=== PATIENT | female | born 1945 | race Caucasian/White ===

== ENCOUNTER 2016-05-21 08:17 | Inpatient (IN) | payer OTHER ==
[2016-05-09 09:44] LABS: BASOPHILS 0.3 %; BASOPHILS ABSOLUTE 0.02 10/3/uL (0.0-0.16); EOSINOPHILS 0.7 %; EOSINOPHILS ABSOLUTE 0.05 10/3/uL (0.0-0.53); HEMATOCRIT 43.3 % (36.0-48.0); HEMOGLOBIN 13.8 g/dL (12.0-16.0); IMMATURE GRANULOCYTES 0.1 %; IMMATURE GRANULOCYTES ABSOLUTE 0.01 10/3/uL (0.0-0.11); LYMPHOCYTES 30.3 %; MANUAL DIFF NO %; MEAN CORPUS HGB CONC 31.9 g/dL (32.0-36.0); MEAN CORPUSCULAR HEMOGLOB 29.4 pg (26.0-34.0); MEAN CORPUSCULAR VOLUME 92.3 fL (80-100); MONOCYTES 7.5 %; MONOCYTES ABSOLUTE 0.52 10/3/uL (0.21-1.20); NEUTROPHILS 61.1 %; NEUTROPHILS ABSOLUTE 4.24 10/3/uL (2.02-8.40); PLATELET COUNT 309 10/3/uL (150-400); RBC DISTRIBUTION WIDTH 13.1 % (12.0-16.0); RED CELL COUNT 4.69 10/6/uL (4.0-5.6); WHITE BLOOD CELLS 6.9 10/3/uL (4.5-10.5)
[2016-05-09 09:55] LABS: PARTIAL THROMBO TIME 27.4 SEC (22.5-37.2)
[2016-05-09 09:56] LABS: PROTIME (NOT ORD) 12.7 SEC (12.0-14.5)
[2016-05-09 10:02] LABS: A/G RATIO 1.1 (0.7-1.9); ALBUMIN 3.8 G/DL (3.5-5.0); ALKALINE PHOSPHATASE 129 U/L (45-117); BUN (BLOOD UREA NITROGEN) 15 MG/DL (6-23); CALCIUM, SERUM 9.2 MG/DL (8.5-10.4); CHLORIDE, SERUM 108 MMOL/L (96-112); CO2 (CARBON DIOXIDE) 28 MMOL/L (24-34); GFR AFRICAN AMERICAN 75 ML/MIN (>=60); GFR NON AFRICAN AMERICAN 65 ML/MIN (>=60); GLOBULIN 3.4 G/DL (2.5-4.1); GLUCOSE, SERUM 84 MG/DL (60-99); POTASSIUM, SERUM 4.6 MMOL/L (3.5-5.3); SGOT(AST) 15 U/L (5-40); SGPT(ALT) 18 U/L (5-65); SODIUM, SERUM 143 MMOL/L (135-148); TOTAL BILIRUBIN 0.6 MG/DL (0-1.2); TOTAL PROTEIN 7.2 G/DL (6.0-8.5)
[2016-05-09 10:41] LABS: ASCORBIC ACID (UR NOT ORDER) NEG (NEG); BILIRUBIN, URINE NEGATIVE (NEG); KETONE, URINE NEGATIVE (NEG); LEUKOCYTE ESTERASE(NOT OR TRACE (NEG); WBC (NOT ORDERED) (RFLEX) 3 (0-5)
--- NOTE | ~2016-05-21 | DS ---
Discharge Summary [facility] [address] [place]. [address] NAME: KALI DRIVER : 47 STATUS : DIS IN PAT#: [id number] AGE: 71 ADM/REG DATE : 05/21/16 MR#: [id number] REPORT SERV DATE: 05/31/16 DICTATED BY: NATASHA ESTRADA DATE: 05/30/16 REPORT STATUS : Draft TRANSCRIBED BY: LISA DATE: 05/30/16 Data Collection from hospitalization DISCHARGE DIAGNOSES: 1. Right hip arthritis. 2. Hypercholesterolemia. CONSULTATIONS: None. PROCEDURES PERFORMED: Right total hip arthroplasty on 05/21/2016. PATHOLOGY: Bone and soft tissue, right hip joint arthroplasty - degenerative joint disease with eburnation. MEDICATIONS: Vitamin D 2000 units daily, Grannis 5/325 one to two tablets every four hours as needed, Zofran 4 mg every six hours as needed, Ultram 50 mg every six hours as needed, Herb- Lax five tablets daily as instructed, and Coumadin 2 mg every evening. CONDITION AT DISCHARGE: Stable. DISPOSITION: The patient was discharged home on a regular diet with activities as instructed. She would follow up with Harman Luevano on 06/05/[address] Natasha Estrada on 07/03/2016. She would follow up at [facility] for physical therapy three times a week for four to six weeks and at [facility] for labs on Friday or Friday following discharge. HOSPITAL COURSE: This is a 71-year-old female who has a chief complaint of right hip pain. She has a long history of right hip pain consistent with osteoarthritis. Treatment options were discussed and it was elected to proceed with surgical intervention. She was admitted to the hospital at this time for further evaluation and treatment. Upon admission, she had good pain control. INR level was 1.1. She had no edema. On postop day #2, she continued to progress. Her lungs were clear. She had a normal respiratory effort. We encouraged her to mobilize with Physical Therapy. Discharge planning was performed. She was evaluated by Occupational and Physical Therapy. On 05/24/2016, she continued to do well. She was up sitting in a bedside chair. KIMI hose were in place. Discharge instructions were given. Due to her improved and stable condition, she was discharged home with the above-stated instructions. Information collected by: Rachelle Jain I submit the above information as my discharge summary. SKYLER/LISA Natasha Estrada M.D. / [id number] Discharge Summary [address] [address] NAME: KALI DRIVER : 47 STATUS : DIS IN PAT#: [id number] AGE: 71 ADM/REG DATE : 05/21/16 MR#: [id number] REPORT SERV DATE: 05/31/16 DICTATED BY: NATASHA ESTRADA DATE: 05/30/16 REPORT STATUS : Draft TRANSCRIBED BY: LISA DATE: 05/30/16 CC: Ro Jaramillo M.D.
--- NOTE | ~2016-05-21 | OP ---
Record Of Operation [facility] [address] [place]. [address] NAME: KALI DRIVER : 47 STATUS : ADM IN PAT#: [id number] AGE: 71 ADM/REG DATE : 05/21/16 MR#: [id number] REPORT SERV DATE: 05/21/16 DICTATED BY: NATASHA ESTRADA DATE: 05/21/16 REPORT STATUS : Draft TRANSCRIBED BY: MODL DATE: 05/21/16 DATE OF PROCEDURE: 05/21/2016 PREOPERATIVE DIAGNOSIS: Right hip arthritis. POSTOPERATIVE DIAGNOSIS: Right hip arthritis. PROCEDURE PERFORMED: Right total hip arthroplasty. SURGEON: Natasha Estrada M.D. EMERGENCY VEHICLE OPERATOR: Alberto Cornejo. ANESTHESIA: General with local infusion. PROCEDURE IN DETAIL: The patient is clearly identified and after obtaining informed consent is brought to the operating room at [facility] where here the patient is induced under general anesthesia and subsequently placed in the left lateral decubitus position. This concluded, the thigh and flank are prepped and draped in the usual manner. A time-out procedure successfully performed and after registering the knee and marking the anatomy through an approximately 4.5 incision, the skin is divided. The fascial planes are divided. The lateral fascia then is divided. Hemostasis is obtained with electrocautery and a Charnley retractor is applied. The piriformis is identified, tagged, divided, and retracted over the sciatic nerve felt deep in the wound. At which point, the mini approach to the hip is formed with dividing the capsule in a mini approach with a cuff of tissues remaining at the femoral side to accomplish repair at the conclusion of the case. Dislocating the hip, end-stage arthritic changes are noted. The tissue surrounding the femoral neck are protected with the Hohmann retractor and the femoral neck cut is made according to preoperative templating. This concluded, the femoral head is removed. The acetabulum is exposed. The labral and fluvial tissues are removed and reaming is performed. Subsequently trialing with the appropriate trial, the permanent acetabular components placed with the [place] Sector. At which point, the acetabular trial component is then placed. The proximal femur is then addressed. The structures posteromedial to the greater trochanter are removed and this concluded the cookie-cutter canal finder lateralizer and reaming is performed. This concluded, broaching is performed and with excellent fit-fill and stability for the implant trialing is performed finding excellent leg length, stability, no impingement, good kickback, no push-pull, and the lesser trochanter palpably at the appropriate distance from the ischium when compared to preoperative templating. The trials were felt to be appropriate. These are all then removed and the permanent implants are then carefully applied uneventfully. Copious irrigation is then performed with same stability and findings noted after insertion. At which point, the joint then is carefully closed in layers including capsule, piriformis, lateral fascia, deep tissues, and skin. Aquacel dressing is applied and the patient is then allowed to awaken, is placed supine and is returned to the recovery room in stable condition having tolerated the procedure well. ESTIMATED BLOOD LOSS: 150. Record Of Operation [facility] [address] [facility] [place]. [address] NAME: KALI DRIVER : 47 STATUS : ADM IN [facility]#: [id number] AGE: 71 ADM/REG DATE : 05/21/16 MR#: [id number] REPORT SERV DATE: 05/21/16 DICTATED BY: NATASHA ESTRADA DATE: 05/21/16 REPORT STATUS : Draft TRANSCRIBED BY: LISA DATE: 05/21/16 FLUIDS: 900. TOURNIQUET TIME: None. PATHOLOGY: Sent specimen. MICROBIOLOGY: None. COMPLICATIONS: None. SPONGE AND NEEDLE COUNTS: Reportedly correct. ANTIBIOTICS: Administered appropriately preoperatively and ordered to be discontinued within 23 hours. IMPLANTS: DePuy hip system, femur Wilkes, size 5 standard, +1.5/36 metal head. Acetabulum, [place] sector size 52 with a +4 neutral liner, and no screws. EFRAIN/LISA Natasha Estrada M.D. / [id number] CC: Natasha Estrada M.D.
[~2016-05-21 08:17] MED LIST: CALTRA600D PO; COSAMIN DS1 TAB PO; GLUCCHONDR PO; HERB LAX PO; VITAMIN B PO; VITAMIN D1000 UNI1 PO; VITAMIN D400 UNI1 PO; VITE PO
[2016-05-22 05:04] LABS: HEMOGLOBIN 11.8 g/dL (12.0-16.0)
[2016-05-22 05:13] LABS: HEMATOCRIT 35.6 % (36.0-48.0)
[2016-05-22 05:14] LABS: INTERNATIONAL NORMAL RATI 1.1 UNITS (-); PROTIME (NOT ORD) 13.7 SEC (12.0-14.5)
[2016-05-22 05:18] LABS: BUN (BLOOD UREA NITROGEN) 13 MG/DL (6-23); CALCIUM, SERUM 8.4 MG/DL (8.5-10.4); CHLORIDE, SERUM 109 MMOL/L (96-112); CO2 (CARBON DIOXIDE) 26 MMOL/L (24-34); GFR AFRICAN AMERICAN 87 ML/MIN (>=60); GFR NON AFRICAN AMERICAN 75 ML/MIN (>=60); GLUCOSE, SERUM 121 MG/DL (60-99); POTASSIUM, SERUM 4.9 MMOL/L (3.5-5.3); SODIUM, SERUM 141 MMOL/L (135-148)
[2016-05-23 04:57] LABS: HEMATOCRIT 32.7 % (36.0-48.0); HEMOGLOBIN 10.5 g/dL (12.0-16.0)
[2016-05-23 05:01] LABS: INTERNATIONAL NORMAL RATI 1.9 UNITS (-)
[2016-05-23 05:02] LABS: PROTIME (NOT ORD) 21.7 SEC (12.0-14.5)
[2016-05-23 05:16] LABS: BUN (BLOOD UREA NITROGEN) 11 MG/DL (6-23); CALCIUM, SERUM 8.3 MG/DL (8.5-10.4); CHLORIDE, SERUM 108 MMOL/L (96-112); CO2 (CARBON DIOXIDE) 28 MMOL/L (24-34); CREATININE 0.69 MG/DL (0.55-1.02); GFR AFRICAN AMERICAN 102 ML/MIN (>=60); GFR NON AFRICAN AMERICAN 88 ML/MIN (>=60); GLUCOSE, SERUM 113 MG/DL (60-99); SODIUM, SERUM 144 MMOL/L (135-148)
[2016-05-24 04:24] LABS: HEMATOCRIT 31.2 % (36.0-48.0); HEMOGLOBIN 10.2 g/dL (12.0-16.0)
[2016-05-24 04:31] LABS: INTERNATIONAL NORMAL RATI 2.4 UNITS (-)
[2016-05-24 04:33] LABS: PROTIME (NOT ORD) 26.3 SEC (12.0-14.5)
[2016-05-24] MEDS ORDERED: C2 PO (13:24)
[2016-05-24] MEDS ORDERED: NORCO1 TA1 PO (13:25)
[2016-05-24] MEDS ORDERED: ZOFRAN4 PO (13:25)
[2016-05-24] MEDS ORDERED: ULTRAM50 PO (13:26)
== END 2016-05-24 14:31 | disposition home or self-care (01) | DRG 470 ==
LOC: SDC/OF 08:17 → PACU 13:49 → 3SO 15:36
PROVIDERS: Orthopaedic Surgery
PROC: 0SR90JZ Replacement of Right Hip Joint with Synthetic Substitute, Open Approach (ICD-10-PCS; principal; 2016-05-21 11:00)
DX: M16.11 Unilateral primary osteoarthritis, right hip (principal); E78.5 Hyperlipidemia, unspecified
CPT/HCPCS: 36415; 71020; 72170; 80048; 80053; 81001; 85014; 85018; 85025; 85610; 85730; 86850; 86900; 86901; 87641; 88304; 88311; 93005; 97110-GP; 97116-GP; 97161-GP; 97165-GO; 97535-GO; A9270-GY; C1776; J0690; J1170; J1885; J2250; J2274; J2405; J2710; J2795; J3010